=== PATIENT | male | born 1980 | race Asian ===

== ENCOUNTER 2019-06-07 08:57 | Emergency (ER) | payer OTHER ==
[~2019-06-07] VITALS: Ht 177.8 cm; Wt 84.9 kg
[2019-06-07 09:06] VITALS: Ht 177.8 cm; Wt 84.9 kg
[2019-06-07 11:45] VITALS: BP 136/75
== END 2019-06-07 11:45 | disposition home or self-care (01) ==
LOC: ED 08:57
DX: T25.022A Burn of unspecified degree of left foot, initial encounter (principal); X11.8XXA Contact with other hot tap-water, initial encounter; Y93.89 Activity, other specified; Y92.89 Other specified places as the place of occurrence of the external cause; Y99.8 Other external cause status
CPT/HCPCS: 90715; J0690